=== PATIENT | female | born 1985 | race Caucasian/White ===

== ENCOUNTER 2017-08-26 16:17 | Emergency (ER) | payer MEDICAID ==
[2017-08-26] MEDS ORDERED: NORMAL SALINE 1000 ML 1,000 ML IV ONE (17:04)
--- NOTE | 2017-08-26 17:05 | ER Document Report ---
ED Medical Screen (RME) - General Chief Complaint: General Weakness Stated Complaint: TINGLING IN HANDS AND FACE Time Seen by Provider: 08/26/17 17:03 Notes: Patient complains of tingling of the hands face and feet as well as being dizzy and off balance. TRAVEL OUTSIDE OF THE [place] IN LAST 30 DAYS: No - Related Data Allergies/Adverse Reactions: aloe vera [From Vagisil] Allergy (Severe, Verified 08/26/17 16:25) Itching, redness latex [Latex] Allergy (Severe, Verified 08/26/17 16:25) Breaks out in "bumps" benzocaine [From Vagisil] Allergy (Verified 08/26/17 16:25) Fish Containing Products [Fish Product Derivatives] Allergy (Verified 08/26/17 16:25) mineral oil [From Vagisil] Allergy (Verified 08/26/17 16:25) resorcinol [From Vagisil] Allergy (Verified 08/26/17 16:25) Starch [From Vagisil] Allergy (Verified 08/26/17 16:25) vitamin E acetate [From Vagisil] Allergy (Verified 08/26/17 16:25) vitamins A and D [From Vagisil] Allergy (Verified 08/26/17 16:25) fish Allergy (Severe, Uncoded 08/26/17 16:25) Swelling, hives oatmeal Allergy (Severe, Uncoded 08/26/17 16:25) Swelling, hives Past Medical History - Social History Chew tobacco use (# tins/day): No Frequency of alcohol use: None Drug Abuse: None - Past Medical History Cardiac Medical History: Denies: Hx Coronary Artery Disease, Hx Heart Attack, Hx Hypertension Pulmonary Medical History: Denies: Hx Asthma, Hx Bronchitis, Hx COPD, Hx Pneumonia Neurological Medical History: Reports: Hx Migraine. Denies: Hx Cerebrovascular Accident, Hx Seizures Renal/ Medical History: Denies: Hx Peritoneal Dialysis Musculoskeltal Medical History: Reports Hx Arthritis - Hands, Reports Hx Musculoskeletal Deformity, Reports Hx Musculoskeletal Trauma Psychiatric Medical History: Reports: Hx Bipolar Disorder Past Surgical History: Reports: Hx Orthopedic Surgery - R Knee - Immunizations Immunizations up to date: Yes Hx Diphtheria, Pertussis, Tetanus Vaccination: Yes Physical Exam - Vital signs Vitals: Temp Pulse Resp BP Pulse Ox 97.4 F 60 16 121/67 98 08/26/17 16:35 08/26/17 16:35 08/26/17 16:35 08/26/17 16:35 08/26/17 16:35 Course - Vital Signs Vital signs: Temp Pulse Resp BP Pulse Ox 97.4 F 60 16 121/67 98 08/26/17 16:35 08/26/17 16:35 08/26/17 16:35 08/26/17 16:35 08/26/17 16:35
[2017-08-26 17:38] LABS: ABSOLUTE BASOPHILS # (AUTO) 0.1 10^3/uL (0.0-0.2); ABSOLUTE EOSINOPHILS # (AUTO) 0.2 10^3/uL (0.0-0.6); ABSOLUTE LYMPHOCYTES (AUTO) 1.9 10^3/uL (0.5-4.7); ABSOLUTE MONOCYTES (AUTO) 0.4 10^3/uL (0.1-1.4); BASOPHILS % (AUTO) 0.8 % (0-2); EOSINOPHILS % (AUTO) 2.5 % (0-6); HEMATOCRIT 39.9 % (36.0-47.0); HEMOGLOBIN 13.3 g/dL (12.0-15.5); LYMPHOCYTES % (AUTO) 28.9 % (13-45); MEAN CORPUSCULAR HEMOGLOBIN 27.3 pg (27.0-33.4); MEAN CORPUSCULAR HGB CONC 33.2 g/dL (32.0-36.0); MEAN CORPUSCULAR VOLUME 82 fl (80-97); MONOCYTES % (AUTO) 6.6 % (3-13); RED BLOOD COUNT 4.86 10^6/uL (3.72-5.28); SEGMENTED NEUTROPHILS % (AUTO) 61.2 % (42-78); WHITE BLOOD COUNT 6.5 10^3/uL (4.0-10.5)
[2017-08-26 18:01] LABS: ALANINE AMINOTRANSFERASE 35 U/L (9-52); ALBUMIN 4.2 g/dL (3.5-5.0); ALKALINE PHOSPHATASE 91 U/L (38-126); ANION GAP 11 (5-19); ASPARTATE AMINO TRANSFERASE 26 U/L (14-36); BILIRUBIN,DIRECT 0.4 mg/dL (0.0-0.4); BILIRUBIN,TOTAL 0.5 mg/dL (0.2-1.3); BLOOD UREA NITROGEN 14 mg/dL (7-20); CALCIUM 8.7 mg/dL (8.4-10.2); CARBON DIOXIDE 28 mmol/L (22-30); CHLORIDE 105 mmol/L (98-107); CREATININE RESULT 0.88 mg/dL (0.52-1.25); GLUCOSE 89 mg/dL (75-110); SODIUM 143.8 mmol/L (137-145); TOTAL PROTEIN 6.9 g/dL (6.3-8.2)
[2017-08-26 18:02] LABS: APPEARANCE,URINE CLOUDY; BILIRUBIN,URINE NEGATIVE (NEGATIVE); GLUCOSE, URINE NEGATIVE (NEGATIVE); KETONES,URINE NEGATIVE (NEGATIVE); LEUKOCYTE ESTERASE,URINE SMALL (NEGATIVE); NITRITE,URINE NEGATIVE (NEGATIVE); PROTEIN,URINE 100 mg/dL (NEGATIVE)
--- NOTE | 2017-08-26 18:42 | RADIOLOGY REPORT (SQ) ---
EXAM DESCRIPTION: CT HEAD WITHOUT COMPLETED DATE/TIME: 08/26/2017 6:29 pm REASON FOR STUDY: dizzy,numb COMPARISON: None. TECHNIQUE: Axial images acquired through the brain without intravenous contrast. Images reviewed wi th bone, brain and subdural windows. Images stored on PACS. All CT scanners at this facility use dose modulation, iterative reconstruction, and/or weight based d osing when appropriate to reduce radiation dose to as low as reasonably achievable (ALARA). [facility]: Dose Right [facility]: CareDose [facility]: Dose Right [facility]: Teradose 4D [facility]: [employer] RADIATION DOSE: mGy. LIMITATIONS: None. FINDINGS: VENTRICLES: Normal size and contour. CEREBRUM: No masses. No hemorrhage. No midline shift. No evidence for acute infarction. Normal gra y/white matter differentiation. No areas of low density in the white matter. CEREBELLUM: No masses. No hemorrhage. No alteration of density. No evidence for acute infarction. EXTRAAXIAL SPACES: No fluid collections. No masses. ORBITS AND GLOBE: No intra- or extraconal masses. Normal contour of globe without masses. CALVARIUM: No fracture. PARANASAL SINUSES: No fluid or mucosal thickening. SOFT TISSUES: No mass or hematoma. OTHER: No other significant finding. IMPRESSION: NORMAL BRAIN CT WITHOUT CONTRAST. EVIDENCE OF ACUTE STROKE: NO. COMMENT: Quality ID # [id number]: Final reports with documentation of one or more dose reduction techniques (e.g., Automated exposure control, adjustment of the mA and/or kV according to patient size, use of iterative reconstruction technique) TECHNICAL DOCUMENTATION: JOB ID: [id number]- All Rights Reserved
--- NOTE | 2017-08-26 19:23 | ER Document Report ---
ED General - General Chief Complaint: General Weakness Stated Complaint: TINGLING IN HANDS AND FACE Time Seen by Provider: 08/26/17 17:03 Mode of Arrival: Ambulatory Information source: Patient Notes: She complains of tingling around her mouth as well as her bilateral hands and bilateral feet. No other complaints TRAVEL OUTSIDE OF THE [place] IN LAST 30 DAYS: No - HPI Patient complains to provider of: Tingling Onset: Other - a week now Quality of pain: No pain Severity: None Associated symptoms: None Exacerbated by: Denies Relieved by: Denies Similar symptoms previously: No Recently seen / treated by doctor: No Notes: She is on Medicaid but does not know her primary medical doctor. She needs to call to find out - Related Data Allergies/Adverse Reactions: aloe vera [From Vagisil] Allergy (Severe, Verified 08/26/17 16:25) Itching, redness latex [Latex] Allergy (Severe, Verified 08/26/17 16:25) Breaks out in "bumps" benzocaine [From Vagisil] Allergy (Verified 08/26/17 16:25) Fish Containing Products [Fish Product Derivatives] Allergy (Verified 08/26/17 16:25) mineral oil [From Vagisil] Allergy (Verified 08/26/17 16:25) resorcinol [From Vagisil] Allergy (Verified 08/26/17 16:25) Starch [From Vagisil] Allergy (Verified 08/26/17 16:25) vitamin E acetate [From Vagisil] Allergy (Verified 08/26/17 16:25) vitamins A and D [From Vagisil] Allergy (Verified 08/26/17 16:25) fish Allergy (Severe, Uncoded 08/26/17 16:25) Swelling, hives oatmeal Allergy (Severe, Uncoded 08/26/17 16:25) Swelling, hives Past Medical History - General Information source: Patient - Social History Smoking Status: Never Smoker Chew tobacco use (# tins/day): No Frequency of alcohol use: None Drug Abuse: None Lives with: Family, Other - pt. lives with her and 10 children ages 4-14 Family History: Reviewed & Not Pertinent Patient has suicidal ideation: No Patient has homicidal ideation: No - Past Medical History Cardiac Medical History: Denies: Hx Coronary Artery Disease, Hx Heart Attack, Hx Hypertension Pulmonary Medical History: Denies: Hx Asthma, Hx Bronchitis, Hx COPD, Hx Pneumonia Neurological Medical History: Reports: Hx Migraine. Denies: Hx Cerebrovascular Accident, Hx Seizures Renal/ Medical History: Denies: Hx Peritoneal Dialysis Malignancy Medical History: Reports: None GI Medical History: Reports: None Musculoskeltal Medical History: Reports Hx Arthritis - Hands, Reports Hx Musculoskeletal Deformity, Reports Hx Musculoskeletal Trauma Psychiatric Medical History: Reports: Hx Bipolar Disorder Infectious Medical History: Reports: None Past Surgical History: Reports: None, Hx Orthopedic Surgery - R Knee - Immunizations Immunizations up to date: Yes Hx Diphtheria, Pertussis, Tetanus Vaccination: Yes Review of Systems - Review of Systems Constitutional: No symptoms reported EENT: No symptoms reported Cardiovascular: No symptoms reported Respiratory: No symptoms reported Gastrointestinal: No symptoms reported Genitourinary: No symptoms reported Musculoskeletal: No symptoms reported Skin: No symptoms reported Hematologic/Lymphatic: No symptoms reported Neurological/Psychological: See HPI, Sensory change, Tingling. denies: Confusion, Weakness, Loss of power, Paralysis, Seizure, Lost consciousness, Headaches, Numbness Physical Exam - Vital signs Vitals: Temp Pulse Resp BP Pulse Ox 97.4 F 60 16 121/67 98 08/26/17 16:35 08/26/17 16:35 08/26/17 16:35 08/26/17 16:35 08/26/17 16:35 - Notes Notes: PHYSICAL EXAMINATION: GENERAL: Well-appearing, well-nourished and in no acute distress. HEAD: Atraumatic, normocephalic. EYES: Pupils equal round and reactive to light, extraocular movements intact, conjunctiva are normal. ENT: Nares patent, oropharynx clear without exudates. Moist mucous membranes. NECK: Normal range of motion, supple without lymphadenopathy LUNGS: Breath sounds clear to auscultation bilaterally and equal. No wheezes rales or rhonchi. HEART: Regular rate and rhythm without murmurs ABDOMEN: Obese soft, nontender, nondistended abdomen. No guarding, no rebound. No masses appreciated. Female : deferred Musculoskeletal: Normal range of motion, no pitting or edema. No cyanosis. Negative Phalen/Tinels. Normal strength. No paresthesias on exam. NEUROLOGICAL: Cranial nerves grossly intact. Normal speech, normal gait. Subjective tingling to bilateral hands and feet as well as perioral, motor exams PSYCH: Normal mood, normal affect. SKIN: Warm, Dry, normal turgor, no rashes or lesions noted. Course - Re-evaluation Re-evalutation: 08/26/17 19:19 I did call the lab and I spoke with the person who is doing the urinalysis Marline. She stated that there were no red blood cells although there was large blood. I did tell her to please note that. - Vital Signs Vital signs: Temp Pulse Resp BP Pulse Ox 97.4 F 60 16 121/67 98 08/26/17 16:35 08/26/17 16:35 08/26/17 16:35 08/26/17 16:35 08/26/17 16:35 - Laboratory Result Diagrams: 08/26/17 17:05 08/26/17 17:05 Laboratory results interpreted by me: 08/26/17 17:05 Urine Protein 100 H Urine Blood LARGE H Urine Urobilinogen 4.0 H Ur Leukocyte Esterase SMALL H Discharge - Discharge Clinical Impression: Tingling Condition: Stable Disposition: HOME, SELF-CARE Instructions: Normal Exam and Workup ([facility]) Additional Instructions: Please call Medicaid and find out who your new primary medical doctor is and call tomorrow for an appointment. Referrals: [facility] [Provider Group] - Follow up as needed
[2017-08-26 20:01] VITALS: BP 125/74
== END 2017-08-26 20:00 | disposition home or self-care (01) ==
LOC: ER 16:17
DX: R20.2 Paresthesia of skin (principal); Z91.040 Latex allergy status; Z91.013 Allergy to seafood; Z88.8 Allergy status to other drugs, medicaments and biological substances; Z91.018 Allergy to other foods
CPT/HCPCS: 36415; 70450; 80053; 81001; 81025; 85025; 87086; 99285